=== PATIENT | female | born 1990 | race Two or more races ===

== ENCOUNTER 2020-10-15 10:18 | Emergency (ER) | payer MEDICAID ==
[~2020-10-15] VITALS: Ht 167.6 cm; Wt 76.7 kg
[2020-10-15 10:39] VITALS: BP 134/83
[2020-10-15 10:56] LABS: Urine Bacteria MOD /hpf (None Seen); Urine Blood 2+ /uL (Negative); Urine Mucus FEW (None Seen); Urine Specific Gravity 1.013 (1.001-1.035); Urine WBC 174 /hpf (0 - 5); Urine WBC Clumps PRESENT /hpf (None Seen)
[2020-10-15] MEDS ORDERED: cefTRIAXone SOD 1,000 MG VL IM ONE (11:30)
[2020-10-15] MEDS ORDERED: ONDANSETRON ODT 4 MG TAB PO ONE (11:30)
== END 2020-10-15 12:00 | disposition home or self-care (01) ==
LOC: ER 10:18
DX: N39.0 Urinary tract infection, site not specified (principal); Z32.02 Encounter for pregnancy test, result negative
CPT/HCPCS: 81001; 81025; 96372; 99283; J0696; Q0162